=== PATIENT | female | born 1990 | race Caucasian/White ===

== ENCOUNTER → 2019-08-21 17:12 | Outpatient (BNVA) | payer SELFPAY | PROVIDERS: Family Provider Nurse Practitioner; PCP Nurse Practitioner; Visit Provider Nurse Practitioner Family | DX: J01.40 Acute pansinusitis, unspecified (principal); R05 Cough; H66.003 Acute suppurative otitis media without spontaneous rupture of ear drum, bilateral; R68.89 Other general symptoms and signs | CPT/HCPCS: 87804 ==

== ENCOUNTER 2020-10-22 08:48 | Outpatient (CLI) | payer SELFPAY ==
--- NOTE | 2020-10-22 09:15 | CT_ITS ---
WS: [id number] CT scan of the sinuses without IV contrast. Additional two-dimensional coronal and sagittal reconstru ction was performed. 10/22/2020 Clinical Data: SINUSITIS Comparison: None. DLP: 361.[address] scans at [facility] use at least one of these dose optimization techniques: automat ed exposure control; mA and/or kV adjustment per patient size (includes targeted exams where dose is matched to clinical indication); or iterative reconstruction. Findings: The sinus cavities are clear with no air-fluid levels or bone destruction. The orbits are intact. The nasal bones are unremarkable. The intraorbital contents show no abnormalities. The internal auditory canals and the external auditory canals are normal. The mastoid air cells show normal aeration. CT/CT sinus wo con* [id number] Impression: Negative CT scan of the sinuses.
== END 2020-10-22 08:49 | disposition home or self-care (01) ==
PROVIDERS: Family Provider Nurse Practitioner; PCP Nurse Practitioner Family; Visit Provider Otolaryngology
DX: J32.9 Chronic sinusitis, unspecified (principal)
CPT/HCPCS: 70486

== ENCOUNTER → 2021-03-15 11:14 | Outpatient (BNVA) | payer SELFPAY | PROVIDERS: Family Provider Nurse Practitioner; PCP Nurse Practitioner Family; Visit Provider Family Medicine | DX: R00.0 Tachycardia, unspecified (principal); J01.40 Acute pansinusitis, unspecified | CPT/HCPCS: 84443 ==

== ENCOUNTER → 2023-11-20 08:12 | Outpatient (BNVA) | payer BC, SELFPAY | PROVIDERS: Family Provider Nurse Practitioner; PCP Nurse Practitioner Family; Visit Provider Nurse Practitioner Family | DX: I10 Essential (primary) hypertension (principal); E78.2 Mixed hyperlipidemia; E55.9 Vitamin D deficiency, unspecified; E28.2 Polycystic ovarian syndrome; J30.89 Other allergic rhinitis; J32.9 Chronic sinusitis, unspecified; Z79.899 Other long term (current) drug therapy | CPT/HCPCS: 80053; 80061; 81003; 82306; 82728; 83036; 84443; 85025 ==

== ENCOUNTER 2024-06-19 09:59 | Outpatient (CLI) | payer BC, SELFPAY ==
[2024-06-19 11:29] LABS: Basophils # 0.1 10^3/uL (0.0-0.1); Basophils % 0.8 %; Eosinophils # 0.2 10^3/uL (0.0-0.8); Eosinophils % 2.1 %; Hematocrit 40.7 % (36-47); Lymphocytes # 4.4 10^3/uL (0.8-4.8); Lymphocytes % 42.1 %; Mean Corpuscular HGB Conc 32.7 g/dL (30-55); Mean Corpuscular Hemoglobin 28.9 pg (27-33); Mean Corpuscular Volume 88.3 fl (85-98); Mean Platelet Volume 9.7 fL (7.4-10.4); Monocytes # 0.8 10^3/uL (0.2-0.9); Monocytes % 7.6 %; Neutrophils # 4.94 10^3/uL (1.8-7.7); Nucleated Red Blood Cells % 0 %; Platelet Count 379 10^3/cmm (157-399); Red Blood Count 4.61 10^6/uL (3.85-5.65); Red Cell Distribution Width 12.4 % (12.1-15.1)
[2024-06-19 12:09] LABS: Folate Level 16.4 ng/mL (4.8-37.3)
[2024-06-19 14:49] LABS: Free T4 Free Thyroxine 1.25 ng/dL (0.82-1.77); Hepatitis C Virus Antibody Non-Reactive (Nonreactive); Thyroid Stimulating Hormone 1.26 uIU/mL (0.27-4.20)
[2024-06-19 15:42] LABS: Ferritin 77 ng/mL (15-150)
[2024-06-20 17:49] LABS: Anti-Double Strand DNA AB <1 IU/mL; Jo-1 Antibody <1.0 NEG AI (<1.0 NEG); SS-B/LA IGG <1.0 NEG AI (<1.0 NEG); Scleroderma Ab(Scl-70) Ab <1.0 NEG AI (<1.0 NEG); Ss-A/Ro Igg <1.0 NEG AI (<1.0 NEG)
[2024-06-23 14:54] LABS: Zinc Level, Serum or Plasma 85 mcg/dL (60-130)
== END 2024-06-19 10:00 | disposition home or self-care (01) ==
LOC: LAB 10:01
PROVIDERS: Family Provider Nurse Practitioner; PCP Nurse Practitioner Family; Visit Provider Nurse Practitioner Family
DX: L30.9 Dermatitis, unspecified (principal); L65.9 Nonscarring hair loss, unspecified
CPT/HCPCS: 36415; 82652; 82728; 82746; 84439; 84443; 84630; 85025; 86225; 86235; 86803

== ENCOUNTER → 2024-08-26 10:48 | Outpatient (BNVA) | payer BC, SELFPAY | PROVIDERS: Family Provider Nurse Practitioner; PCP Nurse Practitioner Family; Visit Provider Nurse Practitioner Family | DX: R68.89 Other general symptoms and signs (principal) | CPT/HCPCS: 87400 ==